=== PATIENT | female | born 1980 | race Caucasian/White ===

== ENCOUNTER 2017-06-28 12:22 | Emergency (ER) | payer MEDICAID, OTHER ==
[~2017-06-28 12:22] MED LIST: SUBO8MIS SL; SULF1TAB47 PO; Z.0.NO CURRENT MEDS
[2017-06-28 12:42] VITALS: BP 148/86; PULSE 98; RESP 18; TEMP 98.7; O2SAT 98
[2017-06-28 14:12] LABS: BACTERIA, URINE OCC /hpf; BILIRUBIN, URINE NEG (NEG); BLOOD, URINE TRACE (NEG); GLUCOSE,URINE NEG (NEG); KETONE, URINE NEG (NEG); MUCUS URINE FEW /lpf (OCC); NITRITE,URINE NEG (NEG); PH, URINE 6.5 (5.0-8.5); SQUAMOUS EPITHELIAL CELL URINE 1 /hpf (0-5); URINE COLOR YELLOW (YELLW/STRAW); URINE LEUKOCYTE ESTERASE LARGE (NEG); WHITE BLOOD CELL CLUMPS FEW
[2017-06-28] MEDS ORDERED: VENL75TA PO (14:56)
[2017-06-28] MEDS ORDERED: VIST50CA PO (14:56)
[2017-06-28] MEDS ORDERED: MACR100C2 PO (14:56)
[2017-06-28] MEDS ORDERED: TRAZ100T10 PO (14:56)
[2017-06-28] MEDS ORDERED: SODIUM CHLOR 0.9% 1000 ML INJ 1,000 ML IV SCH (15:08)
[2017-06-28] MEDS ORDERED: SODIUM CHLORIDE 0.9% FLUSH 10 ML FLUSH IV FLUSH PRN (15:15)
[2017-06-28] MEDS ORDERED: MORPHINE SULFATE 4 MG/ML INJ IV PUSH ONE (15:15)
[2017-06-28] MEDS ORDERED: ONDANSETRON HCL 4 MG/2 ML VIAL IVP ONE (15:15)
--- NOTE | 2017-06-28 15:16 | PD ---
HPI Chief Complaint: Flank/Kidney Pain Time Seen by Provider: 14:55 Travel History International Travel<30 days: No Contact w/Intl Traveler<30days: No Traveled to known affect area: No History of Present Illness HPI 36-year-old female, with history of kidney stones, presents to the emergency department with complaint of continued left flank pain from a kidney stone "blockage." She was seen at [facility] last week and admitted, and discharged on Monday, and was told that she needed to follow-up with urologist because she needed a lithotripsy. She had a urology appointment today and the urologist called and canceled the appointment because she does not have any insurance. She has her hospital papers with her and diagnosis states kidney stone with colic, UTI, hydronephrosis and needs percutaneous lithotripsy. She is currently taking Macrobid for urinary tract infection. Her left flank pain has been occurring 1 week. Denies fever, vomiting. Reports nausea. Denies dysuria, hematuria. Rates pain 9/10 and describes as "labor pains." Pain fluctuates in intensity. Has taken oxycodone for pain; last took yesterday. No known aggravating or relieving factors. Last menstrual period 3 days ago. No primary care provider. Allergies to vancomycin. History of kidney stones. Denies other significant past medical history. Has no other medical complaints. No other modifying factors or associated signs and symptoms. PFSH Past Medical History Asthma: Yes ?: Not LMP: 06/20/17 : 4 Para: 3 Miscarriage: 1 Dilation and Curettage (D&C): Yes Past Surgical History Abdominal Surgery: Yes (NEPHROSTOMY TUBE LEFT KIDNEY) Tonsillectomy: Yes Social History Alcohol Use: No Tobacco Use: Yes (/2 PPD) Substance Use: No Allergies-Medications (Allergen,Severity, Reaction): Coded Allergies: vancomycin (Verified Allergy, Unknown, 06/28/17) Reported Meds & Prescriptions Reported Meds & Active Scripts Active Keflex (Cephalexin) 500 Mg Cap 500 Mg PO Q12H 7 Days Reported Macrobid (Nitrofurantoin Monoh/Nitrofur Macro) 100 Mg Cap 100 Mg PO BID Vistaril (Hydroxyzine Pamoate) 50 Mg Cap 100 Mg PO TID Effexor (Venlafaxine HCl) 75 Mg Tab 75 Mg PO HS Trazodone (Trazodone HCl) 100 Mg Tablet 200 Mg PO HS Review of Systems Except as stated in HPI: all other systems reviewed are Neg Physical Exam Narrative GENERAL: Well-nourished, well-developed female patient, in no acute distress SKIN: Warm and dry. No rash. HEAD: Atraumatic. Normocephalic. EYES: Pupils equal and round. No scleral icterus. No injection or drainage. ENT: Mucosa pink and moist. NECK: Trachea midline. CARDIOVASCULAR: Regular rate and rhythm. No murmur appreciated. RESPIRATORY: No accessory muscle use. Clear to auscultation. Breath sounds equal bilaterally. GASTROINTESTINAL: Abdomen soft, non-tender, nondistended. Tenderness on palpation to left flank area. Hepatic and splenic margins not palpable. Bowel sounds are active 4 quadrants. MUSCULOSKELETAL: No obvious deformities. No clubbing. No cyanosis. No edema. BACK: Left CVA tenderness NEUROLOGICAL: Awake and alert. Oriented 3. No obvious cranial nerve deficits. Motor grossly within normal limits. Normal speech. Moves all extremities. 5/5 strength to all extremities. PSYCHIATRIC: Appropriate mood and affect; insight and judgment normal. Data Data Last Documented VS Vital Signs Date Time Temp Pulse Resp B/P (MAP) Pulse Ox O2 Delivery O2 Flow Rate FiO2 06/28/17 15:44 104 18 98 Room Air 06/28/17 12:42 98.7 148/86 (106) Orders Orders Urinalysis - C+S If Indicated (06/28/17 12:44) Ed Urine Pregnancytest Poc (06/28/17 12:44) Urine Culture (06/28/17 12:45) Complete Blood Count With Diff (06/28/17 15:08) Comprehensive Metabolic Panel (06/28/17 15:08) Lipase (06/28/17 15:08) Ct Abd/Pel W/O Iv Contrast (06/28/17 15:08) Iv Access Insert/Monitor (06/28/17 15:08) Ecg Monitoring (06/28/17 15:08) Oximetry (06/28/17 15:08) Morphine Inj (Morphine Inj) (06/28/17 15:15) Ondansetron Inj (Zofran Inj) (06/28/17 15:15) Sodium Chlor 0.9% 1000 Ml Inj (Ns 1000 M (06/28/17 15:08) Sodium Chloride 0.9% Flush (Ns Flush) (06/28/17 15:15) Ed Discharge Order (06/28/17 17:24) Mandatory Outpatient Referral (06/28/17 17:25) Labs Laboratory Tests Test 06/28/17 12:45 06/28/17 15:30 Urine Color YELLOW Urine Turbidity HAZY Urine pH 6.5 Urine Specific [place] 1.009 Urine Protein NEG mg/dL Urine Glucose (UA) NEG mg/dL Urine Ketones NEG mg/dL Urine Occult Blood TRACE Urine Nitrite NEG Urine Bilirubin NEG Urine Urobilinogen LESS THAN 2.0 MG/DL Urine Leukocyte Esterase LARGE Urine RBC 2 /hpf Urine WBC 130 /hpf Urine WBC Clumps FEW Urine Squamous Epithelial Cells 1 /hpf Urine Bacteria OCC /hpf Urine Mucus FEW /lpf Microscopic Urinalysis Comment CULTURE INDICATED White Blood Count 10.3 TH/MM3 Red Blood Count 5.01 MIL/MM3 Hemoglobin 13.7 GM/DL Hematocrit 41.0 % Mean Corpuscular Volume 81.7 FL Mean Corpuscular Hemoglobin 27.3 PG Mean Corpuscular Hemoglobin Concent 33.4 % Red Cell Distribution Width 15.6 % Platelet Count 277 TH/MM3 Mean Platelet Volume 7.8 FL Neutrophils (%) (Auto) 64.2 % Lymphocytes (%) (Auto) 24.5 % Monocytes (%) (Auto) 5.9 % Eosinophils (%) (Auto) 4.9 % Basophils (%) (Auto) 0.5 % Neutrophils # (Auto) 6.6 TH/MM3 Lymphocytes # (Auto) 2.5 TH/MM3 Monocytes # (Auto) 0.6 TH/MM3 Eosinophils # (Auto) 0.5 TH/MM3 Basophils # (Auto) 0.1 TH/MM3 CBC Comment DIFF FINAL Differential Comment Blood Urea Nitrogen 12 MG/DL Creatinine 0.85 MG/DL Random Glucose 149 MG/DL Total Protein 8.4 GM/DL Albumin 3.9 GM/DL Calcium Level 9.3 MG/DL Alkaline Phosphatase 141 U/L Aspartate Amino Transf (AST/SGOT) 92 U/L Alanine Aminotransferase (ALT/SGPT) 101 U/L Total Bilirubin 0.3 MG/DL Sodium Level 136 MEQ/L Potassium Level 3.9 MEQ/L Chloride Level 101 MEQ/L Carbon Dioxide Level 28.7 MEQ/L Anion Gap 6 MEQ/L Estimat Glomerular Filtration Rate 77 ML/MIN Lipase 141 U/L MDM Medical Decision Making Medical Screen Exam Complete: Yes Emergency Medical Condition: Yes Medical Record Reviewed: Yes Differential Diagnosis Nephrolithiasis, hydronephrosis, pyelonephritis, UTI Narrative Course 36-year-old female with history of kidney stones until she has a kidney stone on the left that is causing a blockage and she needs lithotripsy. She was seen at [facility] and discharged on Monday. Her diagnoses on her discharge papers are kidney stone with colic, UTI, hydronephrosis and treatment states percutaneous lithotripsy. She was supposed to follow-up with urologist today and he called and canceled because she does not have insurance so she came to [place]. CBC, CMP, lipase, urinalysis, UPT, IV, normal saline bolus, morphine, Zofran, CT abdomen/pelvis ordered. 1500: Urinalysis with signs of infection and reflex to culture. Patient is already taking Macrobid, prescribed by [facility], for her UTI. 1708: CBC unremarkable. Liver enzymes mildly elevated, otherwise CMP unremarkable. CT abdomen/pelvis concludes: Abdomen/Pelvis CT 06/28/17 1508 Signed Impressions: Service Date/Time: Wednesday, June 28, 2017 16:01 - CONCLUSION: 1. Numerous large left-sided renal calculi without evidence of significant hydronephrosis or obstructive uropathy. 2. No evidence of acute inflammatory disease. Rene Gordon MD CT findings discussed with the patient and copy of the CT report provided to the patient. Discussed patient findings with my attending physician and he agrees with discharge. Mandatory outpatient referral for urologist ordered. Instructed patient to follow-up with urology. Patient has prescription from previous hospital for pain medications. Instructed patient to stop taking Macrobid. Keflex prescribed for home. Instructed patient to follow up with primary care provider. Patient verbalizes understanding and agreement with treatment plan. Patient is medically cleared and stable for discharge. Discussed reasons to return to the emergency department. Patient agrees with treatment plan. The patients vital signs are stable and the patient is stable for outpatient follow-up and treatment. Patient discharged home, stable and in no acute distress. Diagnosis Primary Impression: Renal calculi Additional Impression: Pyelonephritis Referrals: Primary Care Physician Urologist Patient Instructions: General Instructions, Kidney Stones (ED) Additional Instructions: Pain medication as prescribed Stop taking Macrobid; start Keflex and take antibiotic until it is complete Drink plenty of fluids Follow-up with primary care provider Follow-up with urologist Return to the emergency department immediately with worsening of symptoms Med/Other Pt SpecificInfo: Prescription(s) given, Med Stopped Scripts Cephalexin (Keflex) 500 Mg Cap 500 MG PO Q12H for Infection for 7 Days, #14 CAP 0 Refills Prov: Jenifer Mendez 06/28/17 Disposition: 01 DISCHARGE HOME Condition: Stable Jenifer Mendez Jun 28, 2017 15:16
[2017-06-28 15:44] VITALS: PULSE 104; RESP 18; O2SAT 98
[2017-06-28 16:07] LABS: AUTOMATED NEUTROPHIL # 6.6 TH/MM3 (1.8-7.7); BASOPHIL # 0.1 TH/MM3 (0-0.2); BASOPHIL % 0.5 % (0.0-2.0); EOSINOPHIL # 0.5 TH/MM3 (0-0.4); EOSINOPHIL % 4.9 % (0.0-4.0); HEMOGLOBIN 13.7 GM/DL (11.6-15.3); LYMPH % 24.5 % (9.0-44.0); LYMPHOCYTE # 2.5 TH/MM3 (1.0-4.8); MEAN CELL VOLUME 81.7 FL (80.0-100.0); MEAN CORPUSCULAR HEMOGLOBIN 27.3 PG (27.0-34.0); MEAN CORPUSCULAR HGB CONC 33.4 % (32.0-36.0); MEAN PLATELET VOLUME 7.8 FL (7.0-11.0); MONO % 5.9 % (0.0-8.0); MONOCYTE # 0.6 TH/MM3 (0-0.9); NEUT % 64.2 % (16.0-70.0); PLATELET COUNT 277 TH/MM3 (150-450); RED BLOOD COUNT 5.01 MIL/MM3 (4.00-5.30); RED CELL DISTRIBUTION WIDTH 15.6 % (11.6-17.2); WHITE BLOOD COUNT 10.3 TH/MM3 (4.0-11.0)
--- NOTE | 2017-06-28 16:26 | RADRPT ---
EXAM DATE/TIME: 06/28/2017 16:01 [facility] COMPARISON: No previous studies available for comparison. INDICATIONS : Left flank pain with history of renal stones. ORAL CONTRAST: No oral contrast ingested. RADIATION DOSE: 13.88 CTDIvol (mGy) MEDICAL HISTORY : Renal calculi. SURGICAL HISTORY : Left nephrostomy tube ENCOUNTER: Initial ACUITY: 1 week PAIN SCALE: 5/10 LOCATION: Left flank TECHNIQUE: Volumetric scanning of the abdomen and pelvis was performed. Using automated exposure control and ad justment of the mA and/or kV according to patient size, radiation dose was kept as low as reasonably achievable to obtain optimal diagnostic quality images. DICOM format image data is available electro nically for review and comparison. FINDINGS: LOWER LUNGS: The visualized lower lungs are clear. LIVER: Homogeneous density without lesion. There is no dilation of the biliary tree. No calcified gallston es. SPLEEN: Normal size without lesion. PANCREAS: Within normal limits. KIDNEYS: Multiple large calculi are identified throughout the left renal collecting system. The largest calcul i measure 2.1 and 2.2 cm in size. There is no evidence of significant hydronephrosis. There is no thierry dence of right nephrolithiasis. There is no evidence of hydroureter or ureterolithiasis. There is no significant perinephric str anding or inflammation. ADRENAL GLANDS: Within normal limits. VASCULAR: There is no aortic aneurysm. BOWEL/MESENTERY: The stomach, small bowel, and colon demonstrate no acute abnormality. There is no free intraperitone al air or fluid. ABDOMINAL WALL: Within normal limits. RETROPERITONEUM: There is no lymphadenopathy. BLADDER: No wall thickening or mass. REPRODUCTIVE: Within normal limits. INGUINAL: There is no lymphadenopathy or hernia. MUSCULOSKELETAL: Within normal limits for patient age. CONCLUSION: 1. Numerous large left-sided renal calculi without evidence of significant hydronephrosis or obstruct margo uropathy. 2. No evidence of acute inflammatory disease. Rene Gordon MD on June 28, 2017 at 16:20 Board Certified Radiologist. This report was verified electronically.
[2017-06-28 16:29] LABS: ALKALINE PHOSPHATASE 141 U/L (45-117); TOTAL BILIRUBIN ADULT 0.3 MG/DL (0.2-1.0); TOTAL PROTEIN 8.4 GM/DL (6.4-8.2)
[2017-06-28 17:03] LABS: ALBUMIN 3.9 GM/DL (3.4-5.0); ALT (GPT) 101 U/L (10-53); AST (GOT) 92 U/L (15-37); BICARBONATE 28.7 MEQ/L (21.0-32.0); BLOOD UREA NITROGEN 12 MG/DL (7-18); CALCIUM 9.3 MG/DL (8.5-10.1); CHLORIDE 101 MEQ/L (98-107); CREATININE 0.85 MG/DL (0.50-1.00); GLOMERULAR FILTRATION RATE 77 ML/MIN (>89); GLUCOSE,RANDOM 149 MG/DL (74-106); SODIUM (NA) 136 MEQ/L (136-145)
[2017-06-28] MEDS ORDERED: CEPH-460 PO (17:24)
== END 2017-06-28 17:36 | disposition home or self-care (01) ==
LOC: NEPD 12:22
DX: N20.0 Calculus of kidney (principal); F17.200 Nicotine dependence, unspecified, uncomplicated
CPT/HCPCS: 74176; 80053; 81001; 83690; 84703; 85025; 87077; 87086; 87186; 96374; 96375; 99284; J2270; J2405; J7030